=== PATIENT | male | born 1975 | race Caucasian/White ===

== ENCOUNTER 2021-09-20 10:17 | Emergency (ER) | payer BC, OTHER ==
[~2021-09-20] VITALS: Ht 165.1 cm; Wt 125.0 kg
[~2021-09-20 10:17] MED LIST: HYDR-4346 PO; IBUP-2029 MT; TAMS-11 MT
[2021-09-20] MEDS ORDERED: KETOROLAC 30MG/ML VIAL IV STA (10:25)
[2021-09-20] MEDS ORDERED: ASPIRIN 81MG TABLET PO ONE (10:30)
[2021-09-20 11:24] LABS: EOSINOPHILS % 1.7 % (0.0-5.0); HEMATOCRIT. 44.1 % (42.0-52.0); HEMOGLOBIN. 15.1 g/dL (14.0-18.0); MEAN CORPUSCULAR HEMOGLOBIN 30.4 pg (28.0-32.0); MEAN CORPUSCULAR VOLUME 88.8 fL (80.0-94.0); MEAN PLATELET VOLUME 9.2 fl (7.4-10.4); MONOCYTES % 7.9 % (2.0-8.0); NEUTROPHILS % 66.4 % (40.0-76.0); PLATELET 232 x1000/uL (130-400); RED BLOOD CELL COUNT 4.97 mill/uL (4.7-6.1); RED CELL DISTRIBUTION WIDTH 13.4 % (11.6-14.6)
[2021-09-20 11:31] LABS: CHLORIDE 107 mEq/L (98-107)
[2021-09-20 12:07] LABS: CLARITY URINE CLEAR (CLEAR); COLOR URINE YELLOW (YELLOW); KETONES URINE NEGATIVE (NEGATIVE); LEUKOCYTE ESTERASE URINE NEGATIVE (NEGATIVE); NITRITE URINE NEGATIVE (NEGATIVE); OCCULT BLOOD URINE NEGATIVE (NEGATIVE); PROTEIN URINE NEGATIVE (NEGATIVE); SPECIFIC GRAVITY URINE 1.003 (1.005-1.030); UROBILINOGEN URINE 0.2 E.U./dL (0.2-1.0)
[2021-09-20] MEDS ORDERED: TOPUD PO (13:42)
[2021-09-20 13:45] VITALS: BP 130/77
== END 2021-09-20 14:15 | disposition left against medical advice (07) ==
LOC: ER 11:13
DX: R07.89 Other chest pain (principal); I10 Essential (primary) hypertension; E11.9 Type 2 diabetes mellitus without complications
CPT/HCPCS: 36415; 80053; 81003; 83690; 83880; 84484; 85025; 93005; 99284; J1885